=== PATIENT | female | born 1930 | race Caucasian/White ===

== ENCOUNTER 2017-02-19 13:11 | Emergency (ER) | payer MEDICARE, MEDICAID, SELFPAY ==
[~2017-02-19 13:11] MED LIST: ACETAMINOPHEN325 M2 PO; ACYCLOVIR800 MG PO; ADULT ASPIRIN81 MG PO; ALOE VESTA56 G1 TOP; AMBIEN10 MG PO; AMOXICILLIN500 M2 PO; ASPIR 8181 M1 PO; ASPIR 8181 MG PO; ASPIRIN EC81 M1 PO; ASPIRIN EC81 MG PO; ASSURED; AUGMENTIN 875-1 EAC2 PO; BABY ASPIRIN81 MG PO; BENTYL10 MG PO; BENZONATATE100 M1 PO; BENZONATATE100 MG PO; CEPHALEXIN500 M1 PO; CIPRO500 M2 PO; CLONAZEPAM0.25 MG/TA PO; CLONAZEPAM1 M2 PO; CLOPIDOGREL75 M1 PO; COLACE100 MG PO; COMPAZINE10 MG PO; COMPAZINE25 MG/SUPP PR; CYMBALTA60 MG PO; DARVOCET-N 1001 TAB PO; DIFLUCAN100 M1 PO; DILAUDID2 MG PO; GLIPIZIDE XL5 MG; GLIPIZIDE XL5 MG PO; GLIPIZIDE10 MG PO; GLIPIZIDE5 MG PO; GLUCOPHAGE XR500 M1 PO; GLUCOPHAGE XR500 MG; GLUCOPHAGE XR500 MG PO; GLUCOPHAGE1000 MG PO; GLUCOPHAGE500 MG; GLUCOPHAGE500 MG PO; GLUCOPHAGE500 MG/TA2 PO; GLUCOTROL XL5 M1 PO; GLUCOTROL XL5 MG PO; GLUCOTROL10 MG PO; HYDROCODON-ACE1 EA16 PO; ISORDIL10 MG PO; KEFLEX500 M4 PO; KLONOPIN1 M1 PO; KLONOPIN1 MG PO; LEVAQUIN500 MG PO; LEXAPRO10 M2 PO; LISINOPRIL2.5 MG PO; LOPRESSOR25 MG/TA2 PO; LOPRESSOR25 MG/TA6 PO; LORTAB 5-325 M1 EAC1 PO; METOPROLOL TART25 M1 PO; METOPROLOL TART25 MG PO; MILK OF MA400 MG/5 M PO; MILK OF MAGNESIA PO; MIRALAX17 G2 PO; MIRALAX17 GM PO; MOTRIN600 MG; NEURONTIN300 MG; NEURONTIN300 MG PO; NEURONTIN600 M1 PO; NEURONTIN600 MG PO; NITROGLYCERIN0.4 MG SL; NORCO 5/325 TAB1 TAB PO; NORCO 5/3251 TA2 NG; NORTRIPTYLINE H10 MG PO; NUPRIN200 M PO; NYSTATIN CREAM; OPTIFLEX C PO; PAMELOR10 MG PO; PANTOPRAZOLE SO40 MG PO; PEPCID40 M1 PO; PHENERGAN25 MG PO; PLAVIX75 M1 PO; PLAVIX75 MG PO; PRAVACHOL40 M1 PO; PRAVACHOL40 MG PO; PRAVASTATIN SOD40 MG PO; PREDNISONE5 MG PO; PRILOSEC20 M1 PO; PRINIVIL2.5 MG PO; PROCHLORPERAZIN10 MG; PROTONIX40 M2 PO; PROTONIX40 MG PO; REGLAN5 MG PO; SENOKOT-S TABLE1 TAB PO; SIMVASTATIN20 MG PO; SULFAMETHOXAZO1 EAC5 PO; TEMAZEPAM15 MG PO; TOPROL XL25 MG PO; TRAMADOL; TRAMADOL HCL50 M2 PO; TYLENOL325 M2 PO; TYLENOL325 MG PO; ULTRACET TABLET1 TAB PO; ULTRAM50 MG PO; VITAMIN D-32000 UNI4 PO; ZANAFLEX2 M1 PO; ZESTRIL2.5 M3 PO; ZOFRAN ODT4 MG/UDTAB PO; ZOFRAN4 M1 PO; ZOFRAN4 M2 PO; ZOFRAN4 MG PO; [UNRECOGNIZED DRUG - OTHER] TP; [UNRECOGNIZED DRUG - REMARK]
[2017-02-19 13:52] LABS: BASO % 0.9 % (0-2); EOS % 0.3 % (0-7); HCT-HEMATOCRIT 38.5 % (34.0-49.0); HGB-HEMOGLOBIN 13.5 gm/dl (12.0-15.5); IMMATURE GRANULOCYTES ABSOLUTE 0.05 tho/cmm (0-0.03); IMMATURE GRANULOCYTES PERCENT 0.3 % (0-0.3); LYMPH % 36.2 % (20-45); MCH (MEAN CORPUSCULAR HGB) 31.3 pg (28.0-32.0); MCHC MEAN CORPUSCULAR HGB CONC 35.1 % (32.0-36.0); MCV (MEAN CELL VOLUME) 89.1 fl (82.0-96.0); MEAN PLATELET VOLUME 11.8 cmc (9.4-12.4); MONO % 6.4 % (0-12); NEUTROPHIL ABSOLUTE COUNT 8.3 tho/cmm (1.6-8.0); NEUTROPHIL-AUTOMATED 8.3 tho/cmm (1.6-8.0); NEUTROPHILS % 55.9 % (40-80); PLATELET COUNT 236 tho/cmm (150-450); RED BLOOD COUNT 4.32 mil/cmm (4.00-5.20); RED CELL DISTRIBUTION WIDTH 13.8 % (12.4-16.4); WHITE BLOOD COUNT 14.8 tho/cmm (4.0-10.0)
[2017-02-19 13:53] LABS: BASO ABSOLUTE COUNT 0.1 tho/cmm (0.0-0.2); LYMPH ABSOLUTE COUNT 5.4 tho/cmm (0.8-4.5); MONOCYTE ABSOLUTE COUNT 0.9 tho/cmm (0.0-1.2)
[2017-02-19 14:11] LABS: ALBUMIN 3.8 g/dl (3.5-5.0); ALKALINE PHOSPHATASE 95 U/L (33-138); ALT/SGPT 40 U/L (12-78); ANION GAP 16 mmol/L (0-20); AST/SGOT 27 U/L (10-40); BILIRUBIN,TOTAL 0.4 mg/dl (0-1.5); BLOOD UREA NITROGEN 35 mg/dl (6-24); CALCIUM 9.6 mg/dl (8.5-10.5); CARBON DIOXIDE-VENOUS 24 mmol/L (22-32); CHLORIDE 100 mmol/l (96-110); CREATININE 1.33 mg/dl (0.50-1.10); GLUCOSE 326 mg/dL (70-110); LIPASE 434 U/L (73-393); POTASSIUM 5.4 mmol/L (3.7-5.1); SODIUM 135 mmol/L (135-145); eGFR VALUE FOR BLACK 42 mL/Min
[2017-02-25] MEDS ORDERED: NEURONTIN600 M1 PO (11:40)
[2017-02-25] MEDS ORDERED: COMPAZINE10 MG PO (12:22)
[2017-02-25] MEDS ORDERED: GLUCOPHAGE XR500 M1 PO (12:23)
[2017-02-25] MEDS ORDERED: GLUCOTROL5 M1 PO (12:23)
[2017-02-25] MEDS ORDERED: GLUCOTROL XL5 M1 PO (12:25)
[2017-02-25] MEDS ORDERED: VITAMIN D32000 UNI3 PO (12:27)
[2017-02-25] MEDS ORDERED: OMEPRAZOLE20 M4 PO (12:29)
[2017-02-25] MEDS ORDERED: OPTIFLEX C PO (12:31)
[2017-03-25] MEDS ORDERED: KLONOPIN1 M1 PO (08:53)
[2017-03-25] MEDS ORDERED: BUSPIRONE HCL5 M1 PO (16:53)
[2017-04-20] MEDS ORDERED: METFORMIN HCL1000 M2 PO (13:04)
[2017-04-20] MEDS ORDERED: COREG6.25 M1 PO (13:05)
[2017-04-20] MEDS ORDERED: AUGMENTIN 875-1 EAC2 PO (13:06)
[2017-04-20] MEDS ORDERED: MELATONIN3 M4 PO (14:46)
[2017-04-21] MEDS ORDERED: GLUCOTROL10 M1 PO (10:22)
== END 2017-02-19 16:12 ==
LOC: EDMED 13:11
PROVIDERS: Emergency Medicine
DX: R07.89 Other chest pain (principal); E86.0 Dehydration; I11.9 Hypertensive heart disease without heart failure; Z79.82 Long term (current) use of aspirin; Z79.899 Other long term (current) drug therapy; Z95.5 Presence of coronary angioplasty implant and graft
CPT/HCPCS: J2405; J7030

== ENCOUNTER 2017-02-26 07:03 | Day surgery (SDC) | payer MEDICARE, MEDICAID, SELFPAY ==
[~2017-02-26 07:03] MED LIST changes: +GLUCOTROL5 M1 PO; +OMEPRAZOLE20 M4 PO; +VITAMIN D32000 UNI3 PO
[2017-03-25] MEDS ORDERED: KLONOPIN1 M1 PO (08:53)
[2017-03-25] MEDS ORDERED: BUSPIRONE HCL5 M1 PO (16:53)
[2017-04-20] MEDS ORDERED: METFORMIN HCL1000 M2 PO (13:04)
[2017-04-20] MEDS ORDERED: COREG6.25 M1 PO (13:05)
[2017-04-20] MEDS ORDERED: AUGMENTIN 875-1 EAC2 PO (13:06)
[2017-04-20] MEDS ORDERED: MELATONIN3 M4 PO (14:46)
[2017-04-21] MEDS ORDERED: GLUCOTROL10 M1 PO (10:22)
== END 2017-02-26 10:30 ==
LOC: SHSA 07:03 → ENDOS 08:45
PROC: 3E0G8GC Introduction of Other Therapeutic Substance into Upper GI, Via Natural or Artificial Opening Endoscopic (ICD-10-PCS; principal; 2017-02-26)
PROC: 0DB78ZX Excision of Stomach, Pylorus, Via Natural or Artificial Opening Endoscopic, Diagnostic (ICD-10-PCS; principal; 2017-02-26)
PROC: 0D748ZZ Dilation of Esophagogastric Junction, Via Natural or Artificial Opening Endoscopic (ICD-10-PCS; principal; 2017-02-26)
DX: K31.9 Disease of stomach and duodenum, unspecified (principal); Z88.8 Allergy status to other drugs, medicaments and biological substances; Z79.899 Other long term (current) drug therapy; Z79.82 Long term (current) use of aspirin
CPT/HCPCS: C1769; J0585; J1815